=== PATIENT | female | born 1965 | race Caucasian/White ===

== ENCOUNTER → 2017-06-26 | Outpatient (CLI) | payer BC ==
[~2017-06-26] MED LIST: CEPHALEXIN500 M1 PO; COLACE-T50 MG PO; LANTUS100 U/ML; LISINOPRIL10 MG PO; NOVOLOG 100U100 U/M1 SC
== END ==
LOC: MC.RAD 14:19
DX: Z12.31 Encounter for screening mammogram for malignant neoplasm of breast (principal); N64.89 Other specified disorders of breast

== ENCOUNTER → 2017-07-10 | Outpatient (CLI) | payer BC | LOC: MC.RAD 13:36 | DX: R92.8 Other abnormal and inconclusive findings on diagnostic imaging of breast (principal) ==

== ENCOUNTER → 2018-05-19 | Outpatient (CLI) | payer OTHER | LOC: MC.RAD 13:48 | DX: N63.11 Unspecified lump in the right breast, upper outer quadrant (principal); R92.0 Mammographic microcalcification found on diagnostic imaging of breast | CPT/HCPCS: G0279 ==

== ENCOUNTER → 2018-05-26 | Outpatient (CLI) | payer OTHER | LOC: MC.RAD 08:34 | DX: N63.11 Unspecified lump in the right breast, upper outer quadrant (principal); Z98.82 Breast implant status ==

== ENCOUNTER 2018-06-17 12:49 | Day surgery (SDC) | payer OTHER ==
[2018-06-17] VITALS (7 sets, daily range): BP systolic 101–149; BP diastolic 59–67; PULSE 72–90; TEMP 97.9–98.1
[~2018-06-17] VITALS: Ht 167.6 cm; Wt 95.3 kg
[2018-06-17] MEDS ORDERED: LEVEMIR100 U/ML SQ (13:55)
[2018-06-17] MEDS ORDERED: VITAMIN B COMPL1 SGL PO (13:55)
[2018-06-17] MEDS ORDERED: CALCIUM 600MG+D1 TAB PO (13:56)
[2018-06-17] MEDS ORDERED: VITAMIN D31000 I1 PO (13:57)
[2018-06-17] MEDS ORDERED: NATURAL E400 IU PO (13:58)
--- NOTE | 2018-06-17 14:39 | NUR ---
PATIENT AMBULATED TO THE BATHROOM WITH STEADY GAIT. MRSA PRECAUTIONS REMAIN IN PLACE. CALL LIGHT WITHIN REACH. WILL CONTINUE TO MONITOR. AND MOTHER AT BEDSIDE.
--- NOTE | 2018-06-17 18:25 | NUR ---
Discharge instructions reviewed with patient and spouse, verbalized understanding. Discharged via wheelchair to auto/home with family at 1825.
== END 2018-06-17 18:30 | disposition home or self-care (01) ==
LOC: SDCO 12:49
DX: C50.411 Malignant neoplasm of upper-outer quadrant of right female breast (principal); E11.9 Type 2 diabetes mellitus without complications; Z79.4 Long term (current) use of insulin; I10 Essential (primary) hypertension; Z79.899 Other long term (current) drug therapy; Z98.51 Tubal ligation status
CPT/HCPCS: J0690; J1885; J2250; J2704; J2765; J3010; J7030

== ENCOUNTER 2018-07-07 06:34 | Day surgery (SDC) | payer OTHER ==
[~2018-07-07] VITALS: Ht 167.6 cm; Wt 95.0 kg
[2018-07-07] VITALS (7 sets, daily range): BP systolic 117–147; BP diastolic 45–70; PULSE 80–92; TEMP 97.3–98
[~2018-07-07 06:34] MED LIST changes: +CALCIUM 600MG+D1 TAB PO; +LEVEMIR100 U/ML SQ; +NATURAL E400 IU PO; -NOVOLOG 100U100 U/M1 SC; +NOVOLOG 100U100 U/M1 SQ; +VITAMIN B COMPL1 SGL PO; +VITAMIN D31000 I1 PO
[2018-07-07] MEDS ORDERED: ZESTRIL 20MG TA20 MG PO (07:41)
[2018-07-07] MEDS ORDERED: VITAMIN C500 MG PO (08:05)
--- NOTE | 2018-07-07 10:43 | NUR ---
Blood sugar is at 64. D5NS opened wide for 2nd bolus. Will continue to check blood sugars hourly. Pt nonsymptomatic. Denies needs. Resting in bed. Call light within reach.
--- NOTE | 2018-07-07 11:05 | NUR ---
2nd 100ml bolus complete. Decreased rate to infusing at 200ml/hr. Pt to radiology at this time via cart.
--- NOTE | 2018-07-07 11:55 | NUR ---
Pt back from Radiology via cart. Pt awake and alert. Blood sugar 58. D5NS opened wide. Pt asymptomatic. Will continue to monitor. Call light within reach.
--- NOTE | 2018-07-07 16:00 | NUR ---
Pt to [facility] via cart from PACU. Pt drowsy, but awake. Pt rates pain 3/10 and reports her pain as "tolerable" Dressings to right breast/axiliary is clean, dry, and intact. Pt eating ice chips. Denies nausea. Only wants ice chips at this time. Will continue to montior. Family in room. Call light within reach.
--- NOTE | 2018-07-07 16:15 | NUR ---
Pt continues to rest. Visiting with her family. Denies needs. Call light within reach.
--- NOTE | 2018-07-07 16:30 | NUR ---
Pudding and water given per pt request. Denies needs at this time. Call light within reach.
[2018-07-07] MEDS ORDERED: NORCO 325 MG-51 TAB PO (16:38)
--- NOTE | 2018-07-07 16:45 | NUR ---
[place] 5mg 1 tablet po given. Pt requested to be premedicated prior to dismissal. Will continue to monitor. Call light within reach.
--- NOTE | 2018-07-07 17:00 | NUR ---
Report given to Antonieta ARIZMENDI. Questions invited and answered.
--- NOTE | 2018-07-07 17:15 | NUR ---
UP AMBULATED TO BATHROOM. VOIDED AND TOLERATED WELL
--- NOTE | 2018-07-07 17:25 | NUR ---
RECEIVED DISCHARGE INSTRUCTIONS AND ASSISTING PATIENT DRESSED.
--- NOTE | 2018-07-07 17:40 | NUR ---
DISCHARGED PER WC BY NURSING STAFF TO PRIVATE CAR IN CARE OF -DEANNAbi
== END 2018-07-07 17:53 | disposition home or self-care (01) ==
LOC: SDCO 06:34
DX: C50.411 Malignant neoplasm of upper-outer quadrant of right female breast (principal); Z17.1 Estrogen receptor negative status [ER-]; N60.31 Fibrosclerosis of right breast; N64.1 Fat necrosis of breast; Z79.4 Long term (current) use of insulin; E11.9 Type 2 diabetes mellitus without complications; I10 Essential (primary) hypertension; Z80.0 Family history of malignant neoplasm of digestive organs; Z82.49 Family history of ischemic heart disease and other diseases of the circulatory system; Z82.3 Family history of stroke; Z88.8 Allergy status to other drugs, medicaments and biological substances
CPT/HCPCS: A9541; J0690; J1100; J2250; J2405; J2704; J2795; J3010; J7042; Q9968

== ENCOUNTER → 2018-09-10 | Outpatient (CLI) | payer OTHER ==
[~2018-09-10] MED LIST changes: +NORCO 325 MG-51 TAB PO; +VITAMIN C500 MG PO; +ZESTRIL 20MG TA20 MG PO
== END ==
LOC: COL.VAS 09:05
DX: Z51.81 Encounter for therapeutic drug level monitoring (principal); C50.411 Malignant neoplasm of upper-outer quadrant of right female breast; Z79.899 Other long term (current) drug therapy

== ENCOUNTER → 2019-03-01 | Outpatient (CLI) | payer OTHER | LOC: COL.VAS 13:30 | DX: C50.411 Malignant neoplasm of upper-outer quadrant of right female breast (principal); I51.7 Cardiomegaly; Z92.21 Personal history of antineoplastic chemotherapy ==

== ENCOUNTER → 2019-06-22 | Outpatient (CLI) | payer OTHER | LOC: MC.RAD 05-26 13:45 | DX: Z12.31 Encounter for screening mammogram for malignant neoplasm of breast (principal); Z85.3 Personal history of malignant neoplasm of breast; I10 Essential (primary) hypertension ==

== ENCOUNTER → 2019-07-02 | Outpatient (CLI) | payer OTHER | LOC: COL.VAS 11:15 | DX: Z51.11 Encounter for antineoplastic chemotherapy (principal); Z01.810 Encounter for preprocedural cardiovascular examination; C50.411 Malignant neoplasm of upper-outer quadrant of right female breast; I34.0 Nonrheumatic mitral (valve) insufficiency ==

== ENCOUNTER → 2019-11-15 | Outpatient (CLI) | payer OTHER | LOC: MC.RAD 09:51 | DX: C50.411 Malignant neoplasm of upper-outer quadrant of right female breast (principal); I10 Essential (primary) hypertension ==

== ENCOUNTER → 2020-06-26 | Outpatient (CLI) | payer OTHER | LOC: MC.RAD 08:46 | DX: Z12.31 Encounter for screening mammogram for malignant neoplasm of breast (principal); C50.411 Malignant neoplasm of upper-outer quadrant of right female breast; I10 Essential (primary) hypertension; Z98.890 Other specified postprocedural states ==